=== PATIENT | female | born 1965 | race Two or more races ===

== ENCOUNTER 2017-12-16 11:38 | Outpatient (CLI) | payer OTHER | END 2017-12-16 16:33 | disposition home or self-care (01) | LOC: RAD 501 11:38 | DX: M25.562 Pain in left knee (principal) ==

== ENCOUNTER 2018-07-01 10:33 | Outpatient (CLI) | payer OTHER | END 2018-07-01 13:31 | disposition home or self-care (01) | LOC: NUCLEAR 10:33 | DX: M81.0 Age-related osteoporosis without current pathological fracture (principal) ==

== ENCOUNTER → 2018-10-26 | Outpatient (CLI) | payer OTHER | END | disposition home or self-care (01) | LOC: MAMO-SONO 10:15 | DX: N64.4 Mastodynia (principal); Z12.31 Encounter for screening mammogram for malignant neoplasm of breast ==

== ENCOUNTER 2020-03-12 14:41 | Outpatient (CLI) | payer OTHER | END 2020-03-12 14:50 | disposition home or self-care (01) | LOC: MAMO-SONO 14:41 | PROVIDERS: ATTEND Obstetrics & Gynecology | DX: Z12.31 Encounter for screening mammogram for malignant neoplasm of breast (principal); N64.4 Mastodynia ==

== ENCOUNTER 2021-03-18 13:27 | Outpatient (CLI) | payer OTHER | END 2021-03-18 13:38 | disposition home or self-care (01) | LOC: MAMO-SONO 13:27 | PROVIDERS: ATTEND Obstetrics & Gynecology | DX: N60.11 Diffuse cystic mastopathy of right breast (principal); N60.12 Diffuse cystic mastopathy of left breast ==

== ENCOUNTER 2021-03-18 14:03 | Outpatient (CLI) | payer OTHER | END 2021-03-18 14:13 | disposition home or self-care (01) | LOC: NUCLEAR 14:03 | PROVIDERS: ATTEND Obstetrics & Gynecology | DX: M81.0 Age-related osteoporosis without current pathological fracture (principal) ==

== ENCOUNTER 2022-06-08 11:42 | Outpatient (CLI) | payer OTHER | END 2022-06-08 11:53 | disposition home or self-care (01) | LOC: MAMO-SONO 11:42 | PROVIDERS: ATTEND Obstetrics & Gynecology | DX: N60.21 Fibroadenosis of right breast (principal); N60.22 Fibroadenosis of left breast ==

== ENCOUNTER 2022-10-29 13:55 | Outpatient (CLI) | payer OTHER | END 2022-10-29 14:07 | disposition home or self-care (01) | LOC: SONOGRAMA 13:55 | PROVIDERS: ATTEND Internal Medicine Endocrinology, Diabetes & Metabolism | DX: E04.1 Nontoxic single thyroid nodule (principal); R59.0 Localized enlarged lymph nodes ==

== ENCOUNTER → 2022-11-24 11:30 | Outpatient (CLI) | payer OTHER | END | disposition home or self-care (01) | LOC: LAB 11:30 | PROVIDERS: ATTEND Radiology Diagnostic Radiology | DX: R59.9 Enlarged lymph nodes, unspecified (principal) ==

== ENCOUNTER 2022-11-25 10:01 | Outpatient (CLI) | payer OTHER | END 2022-11-25 10:19 | disposition home or self-care (01) | LOC: TOM 10:01 → RAD 10:01 → TOM 10:19 | DX: R59.9 Enlarged lymph nodes, unspecified (principal) ==

== ENCOUNTER 2023-02-18 14:21 | Outpatient (CLI) | payer OTHER | END 2023-02-18 14:25 | disposition home or self-care (01) | LOC: SONOGRAMA 14:21 | DX: R22.1 Localized swelling, mass and lump, neck (principal) ==

== ENCOUNTER 2023-03-04 08:59 | Outpatient (CLI) | payer OTHER | END 2023-03-04 09:02 | disposition home or self-care (01) | LOC: TOM 08:59 | DX: R59.9 Enlarged lymph nodes, unspecified (principal) ==

== ENCOUNTER 2023-03-23 13:35 | Outpatient (CLI) | payer OTHER | END 2023-03-23 13:36 | disposition home or self-care (01) | LOC: NUCLEAR 13:35 | PROVIDERS: ATTEND Internal Medicine Endocrinology, Diabetes & Metabolism | DX: M85.89 Other specified disorders of bone density and structure, multiple sites (principal); Z13.820 Encounter for screening for osteoporosis ==

== ENCOUNTER 2024-03-03 11:26 | Outpatient (CLI) | payer OTHER | END 2024-03-03 11:32 | disposition home or self-care (01) | LOC: SONOGRAMA 11:26 | PROVIDERS: ATTEND Internal Medicine Endocrinology, Diabetes & Metabolism | DX: E04.2 Nontoxic multinodular goiter (principal); R59.0 Localized enlarged lymph nodes ==

== ENCOUNTER 2024-11-30 14:46 | Outpatient (CLI) | payer OTHER | END 2024-11-30 14:47 | disposition home or self-care (01) | LOC: SONOGRAMA 14:46 | PROVIDERS: ATTEND Internal Medicine Endocrinology, Diabetes & Metabolism | DX: E04.2 Nontoxic multinodular goiter (principal); R59.0 Localized enlarged lymph nodes ==

== ENCOUNTER → 2025-04-16 | Outpatient (CLI) | payer OTHER | END | disposition home or self-care (01) | LOC: MAMO-SONO 13:47 | DX: N64.4 Mastodynia (principal) ==

== ENCOUNTER 2025-05-16 09:54 | Outpatient (CLI) | payer OTHER | END 2025-05-16 09:55 | disposition home or self-care (01) | LOC: NUCLEAR 09:54 | PROVIDERS: ATTEND Internal Medicine Endocrinology, Diabetes & Metabolism | DX: M85.89 Other specified disorders of bone density and structure, multiple sites (principal); Z13.820 Encounter for screening for osteoporosis; M81.0 Age-related osteoporosis without current pathological fracture ==